=== PATIENT | male | born 1945 | race Asian ===

== ENCOUNTER 2018-08-16 10:02 | Emergency (ER) | payer MEDICARE, MEDICAID ==
[~2018-08-16] VITALS: Ht 167.6 cm; Wt 60.0 kg
[2018-08-16 13:30] LABS: CLARITY URINE CLEAR (CLEAR); COLOR URINE RED (YELLOW); KETONES URINE NEGATIVE (NEGATIVE); LEUKOCYTE ESTERASE URINE NEGATIVE (NEGATIVE); NITRITE URINE NEGATIVE (NEGATIVE); OCCULT BLOOD URINE 3+ (NEGATIVE); PROTEIN URINE TRACE (NEGATIVE); SPECIFIC GRAVITY URINE 1.005 (1.005-1.030); UROBILINOGEN URINE 0.2 E.U./dL (0.2-1.0)
[2018-08-16] MEDS ORDERED: TAMSULOSIN HCL 0.4MG SR CAPSULE PO ONE (15:15)
[2018-08-16 15:52] VITALS: BP 138/77
== END 2018-08-16 15:53 | disposition home or self-care (01) ==
LOC: ER 10:02
DX: R33.9 Retention of urine, unspecified (principal); I10 Essential (primary) hypertension
CPT/HCPCS: 51702; 99284; A4315